=== PATIENT | male | born 1975 | race Caucasian/White ===

== ENCOUNTER 2016-03-24 15:45 | Emergency (ER) | payer BC ==
[2016-03-24 16:13] VITALS: BP 107/65
[2016-03-24] MEDS ORDERED: Sodium Chloride 0.9% 10 ML Syringe FLUSH PRN (16:16)
[2016-03-24] MEDS ORDERED: Ondansetron 4 MG/2 ML SDV IVPUSH ONE (16:17)
--- NOTE | 2016-03-24 16:25 | EDM.PDOC ---
ED HPI Trauma - General Chief Complaint: Upper Extremity Injury/Pain Stated Complaint: head injury and left elbow pain s/p fall Time Seen by Provider: 03/24/16 16:11 Source: Reports: Patient, Family, RN, RN notes reviewed History Limitations: Reports: No limitations - History of Present Illness INITIAL COMMENTS - FREE TEXT/NARRATIVE: Patient presents to the ED at [facility] after sustaining a fall on the ice. Patient states he was walking around his house, slipped and fell on some ice and landed on his left elbow and hit his head. Patient states he did start to drive himself to where his was. Half way there, he did "black out." He states he put the truck in Park and called his . The brought the patient directly here. No previous head injury or trauma. No previous LUE trauma. Symptom Onset Date: 03/24/16 Symptom Onset Time: 15:35 Occurred When: just prior to arrival Occurred Where: home Method of Injury: fall Severity: mild Pain/Injury Location: Reports: head, upper extremity, left Consciousness: Reports: brief (seconds), remembers incident Associated Symptoms: Reports: nausea/vomiting Allergies/ADRs: Allergies No Known Allergies Allergy (Verified 03/24/16 16:08) Home Medications: Ambulatory Orders Escitalopram [Lexapro] 10 mg PO DAILY 03/24/16 [Confirmed 03/24/16] Past Medical History - Past Health History Medical/Surgical History: Denies Medical/Surgical History Social & Family History - Family History Family Medical History: Noncontributory - Tobacco Use Smoking Status *Q: Former Smoker Tobacco Use Within Last Twelve Months: No - Tobacco Core Measures Tobacco Use/Smoking Within Last 30 Days: Refused Screening - Living Situation & Occupation Living situation: Reports: Occupation: employed Review of Systems - Review of Systems Review Of Systems: See Below Constitutional: Reports: no symptoms Eyes: Reports: no symptoms Ears: Reports: no symptoms Respiratory: Denies: shortness of breath, cough Cardiovascular: Denies: chest pain, palpitations GI/Abdominal: Reports: Nausea. Denies: Abdominal pain, Vomiting Musculoskeletal: Reports: joint pain (left elbow) Skin: Reports: no symptoms Neurological: Reports: dizziness. Denies: headache, numbness, paresthesia, tingling, weakness Trauma Exam - Physical Exam Exam: See Below Exam Limited By: No limitations General Appearance: Reports: alert, no apparent distress Head: Reports: atraumatic, normocephalic Eyes: bilateral eye: EOMI, normal inspection, PERRL Ears: Reports: normal external exam, normal canal, hearing grossly normal, normal TMs Nose: Reports: normal inspection, normal mucousa, no blood Throat/Mouth: Reports: Normal inspection, Normal oropharynx, No airway compromise Neck: Reports: non-tender, normal alignment, normal inspection Respiratory Exam: Reports: no respiratory distress, lungs clear, normal breath sounds Cardiovascular: Reports: normal peripheral pulses, regular rate, rhythm, no edema Extremities: Reports: tenderness (medial left elbow; no obvious bone deformity; no crepitusl limited ROM due to pain) Neurologic: Reports: no motor/sensory deficits, alert, oriented x 3 Skin: Reports: Normal color, Warm/dry - Carola Coma Score Best Eye Response ([place]): (4) open spontaneously Best Verbal Response ([place]): (5) oriented Best Motor Response ([place]): (6) obeys commands Carola Total: 15 ED PROCEDURES, ALL - Splinting Splint site: Left Elbow Pre-procedure NV status: normal Post-procedure NV status: normal Splint material: other Splint design: posterior, sling Applied & form fitted by: provider Provider post-splint application NV check: NV status normal, good position Complications: none Course - Vital Signs Last Recorded V/S: Last Vital Signs Temp 35 C L 03/24/16 16:09 Pulse 58 L 03/24/16 16:09 Resp 16 03/24/16 16:09 BP 107/65 03/24/16 16:09 Pulse Ox 95 03/24/16 16:09 - Orders/Labs/Meds Orders: Active Orders 24 hr Category Date Time Status Elbow Min 3V Lt [CR] Stat Exams 03/24/16 16:17 Taken Elbow wo Cont Lt [CT] Stat Exams 03/24/16 16:54 Ordered Head wo Cont [CT] Stat Exams 03/24/16 16:11 Taken Sodium Chloride 0.9% [Saline Flush] Med 03/24/16 16:16 Active 10 ml FLUSH ASDIRECTED PRN Peripheral IV Insertion Adult [OM.PC] Routine Oth 03/24/16 16:16 Ordered Medication Orders Sodium Chloride (Saline Flush) 10 ml FLUSH ASDIRECTED PRN PRN Reason: Keep Vein Open Meds: Medications Generic Name Dose Route Start Last Admin Trade Name [place] PRN Reason Stop Dose Admin Sodium Chloride 10 ml 03/24/16 16:16 Saline Flush FLUSH ASDIRECTED PRN Keep Vein Open Discontinued Medications Generic Name Dose Route Start Last Admin Trade Name Freq PRN Reason Stop Dose Admin Acetaminophen/Hydrocodone Bitart 1 packet 03/24/16 16:40 03/24/16 16:48 Take Home: Acetam/Hydrocodon 325-5 Mg, 5 Pack PO 03/24/16 16:41 1 packet ONETIME ONE Administration Ketorolac Tromethamine 30 mg 03/24/16 16:40 03/24/16 16:47 Toradol IVPUSH 03/24/16 16:41 30 mg ONETIME ONE Administration Ondansetron HCl 4 mg 03/24/16 16:17 03/24/16 16:41 Zofran IVPUSH 03/24/16 16:18 4 mg ONETIME ONE Administration Departure - Departure Time of Disposition: 16:59 Disposition: Home, Self-Care 01 Condition: good Clinical Impression: Closed head injury with brief loss of consciousness Fracture of radial head, left, closed Qualifiers: Encounter type: initial encounter Fracture alignment: nondisplaced Qualified Code(s): S52.125A - Nondisplaced fracture of head of left radius, initial encounter for closed fracture Fall from slipping on ice Qualifiers: Encounter type: initial encounter Qualified Code(s): W00.9XXA - Unspecified fall due to ice and snow, initial encounter Instructions: Radial Head Fracture, [id number], Cast or Splint Care, Easy-to- Read Referrals: Preet Gutierrez MD [Primary Care Provider] - Forms: ED Department Discharge Additional Instructions: 1. Stay well hydrated and rest 2. Wear splint at all times 3. May shower/bath as usual; do not get splint wet 4. Take Vicodin pain medication as prescribed 5. [facility] will call you on Friday to set up the Ortho appointment 6. See your Primary as symptoms warrant ED Communication - ED Communication Date/Time Date: 03/24/16 Time Called: 16:55 - Discussed Case With (1) Discussed Case With (1): Other Person/s Notified (1): Patricio Domínguez (Ortho) - Conversation Summary Outpatient Provider Agreed to Follow-up on this Patient: Yes Radiology Reading Discussed with Radiologist: Yes Summary Comment: Patient has a radial head fracture; recommend splint and CT of elbow; f/u with Ortho this week in clinic - Problem List Review Problem List Initiated/Reviewed/Updated: Yes - My Orders Last 24 Hours: My Active Orders 03/24/16 16:11 Head wo Cont [CT] Stat 03/24/16 16:16 Sodium Chloride 0.9% [Saline Flush] 10 ml FLUSH ASDIRECTED PRN Peripheral IV Insertion Adult [OM.PC] Routine 03/24/16 16:17 Elbow Min 3V Lt [CR] Stat 03/24/16 16:54 Elbow wo Cont Lt [CT] Stat - Assessment/Plan Last 24 Hours: My Active Orders 03/24/16 16:11 Head wo Cont [CT] Stat 03/24/16 16:16 Sodium Chloride 0.9% [Saline Flush] 10 ml FLUSH ASDIRECTED PRN Peripheral IV Insertion Adult [OM.PC] Routine 03/24/16 16:17 Elbow Min 3V Lt [CR] Stat 03/24/16 16:54 Elbow wo Cont Lt [CT] Stat
[2016-03-24] MEDS ORDERED: Take Home: Acetaminophen/HYDROcodone 325-5 MG, 5 Tab Pack PO ONE (16:40)
[2016-03-24] MEDS ORDERED: Ketorolac 30 MG/ML SDV IVPUSH ONE (16:40)
== END 2016-03-24 17:40 | disposition home or self-care (01) ==
LOC: VM.ED 15:45
DX: S52.125A Nondisplaced fracture of head of left radius, initial encounter for closed fracture (principal); S06.9X9A Unspecified intracranial injury with loss of consciousness of unspecified duration, initial encounter; W00.9XXA Unspecified fall due to ice and snow, initial encounter; Z87.891 Personal history of nicotine dependence
CPT/HCPCS: 29105; 70450; 73080; 73200; 96374; 96375; 99284; A9270; J1885; J2405

== ENCOUNTER 2018-10-31 17:58 | Observation (INO) | payer BC ==
[2018-10-31] MEDS ORDERED: Sodium Chloride 0.9% 1,000 ML IV ONE (18:17)
[2018-10-31] MEDS ORDERED: Ondansetron 8 MG in Sodium Chloride 0.9% 100 ML IV ONE (18:18)
--- NOTE | 2018-10-31 18:28 | EDM.PDOC ---
ED HPI GENERAL MEDICAL PROBLEM - General Chief Complaint: Gastrointestinal Problem Stated Complaint: Patient states he was at home after working in the yard today he went upstairs to shower felt very nauseated and sat down/laid down on the floor vomited called EMS with questionable heatstroke Time Seen by Provider: 10/31/18 18:15 Source of Information: Reports: Patient, EMS, Family History Limitations: Reports: No Limitations - History of Present Illness INITIAL COMMENTS - FREE TEXT/NARRATIVE: Patient states he was out mowing the yard today and spraying 24D for the last couple of hours. He denies any skin contact with the chemical and says he been feeling fine all day and says he has not had anything to eat but has been drinking plenty of water. He states he has been trying to diet lately over the last couple of days he denies taking any diet medications or changes in medications. Said he felt fine earlier today until the nausea and dizziness started approximately hour or so ago. Patient at time arrival EMS denied any pain shortness of breath EKG was run showed normal sinus rhythm nothing acute vital signs normal except for patient was hypothermic Onset: Today, Sudden Duration: Hour(s): Improves with: Reports: None Worsens with: Reports: None Associated Symptoms: Reports: Diaphoresis, Nausea/Vomiting. Denies: Confusion, Chest Pain, Fever/Chills, Headaches, Rash, Seizure, Shortness of Breath, Syncope , Weakness - Related Data Allergies Allergy/AdvReac Type Severity Reaction Status Date / Time No Known Allergies Allergy Verified 10/31/18 18:34 Home Meds: Home Meds Escitalopram [Lexapro] 30 mg PO DAILY 03/24/16 [History] buPROPion HCl [Wellbutrin Xl] 150 mg PO DAILY 10/31/18 [History] Past Medical History - Past Health History Medical/Surgical History: Denies Medical/Surgical History Social & Family History - Family History Family Medical History: Noncontributory - Living Situation & Occupation Living situation: Reports: Occupation: Employed ED ROS GENERAL - Review of Systems Review Of Systems: See Below Constitutional: Reports: Diaphoresis. Denies: No Symptoms, Fever, Chills, Malaise, Weakness, Fatigue, Night Sweats, Decreased Appetite HEENT: Denies: No Symptoms, Ear Discharge, Eye Pain, Nosebleed, Rhinitis, Sinus Problem, Vertigo, Vision Change Respiratory: Reports: No Symptoms Cardiovascular: Denies: Chest Pain, Blood Pressure Problem, Claudication, Dyspnea on Exertion, Palpitations, PND, Syncope Endocrine: Reports: No Symptoms GI/Abdominal: Reports: Nausea, Vomiting. Denies: Abdominal Pain : Reports: No Symptoms Musculoskeletal: Reports: No Symptoms Skin: Reports: No Symptoms Neurological: Reports: Dizziness. Denies: Confusion, Headache, Numbness, Paresthesia, Syncope, Tingling, Weakness Psychiatric: Reports: No Symptoms Hematologic/Lymphatic: Reports: No Symptoms Immunologic: Reports: No Symptoms ED EXAM, GENERAL - Physical Exam Exam: See Below Exam Limited By: No Limitations (Patient is diaphoretic and hypothermic. He was checked orally and temporal for temperature) General Appearance: Alert, WD/WN, No Apparent Distress Eye Exam: Bilateral Eye: EOMI, Nystagmus (Patient has bilateral horizontal nystagmus noted) Ears: Normal External Exam, Normal Canal, Hearing Grossly Normal, Normal TMs Ear Exam: Bilateral Ear: Auricle Normal, Canal Normal, TM normal Nose: Normal Inspection, Normal Mucosa, No Blood Throat/Mouth: Normal Inspection, Normal Lips, Normal Teeth, Normal Gums, Normal Oropharynx, Normal Voice, No Airway Compromise Head: Atraumatic, Normocephalic Neck: Normal Inspection, Supple, Non-Tender, Full Range of Motion Respiratory/Chest: No Respiratory Distress, Lungs Clear, Normal Breath Sounds, No Accessory Muscle Use, Chest Non-Tender Cardiovascular: Normal Peripheral Pulses, Regular Rate, Rhythm, No Edema, No Gallop, No JVD, No Murmur, No Rub GI/Abdominal: Normal Bowel Sounds, Soft, Non-Tender, No Organomegaly, No Distention. No: Guarding, Rigid, Rebound, Tender Back Exam: Full Range of Motion Extremities: Normal Inspection, Normal Range of Motion, Non-Tender, No Pedal Edema, Normal Capillary Refill Neurological: Alert, Oriented, CN II-XII Intact, Normal Cognition. 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 bilateral equal facial sensation deep tendon reflexes lower extremity 2+ patella and Achilles with testing the Babinski patient has no plantar flexion bilateral is equal sensation to soft touch) Psychiatric: Normal Affect, Normal Mood Skin Exam: Intact, No Rash, Diaphoretic Lymphatic: No Adenopathy EKG INTERPRETATION EKG Interpretation Comments: EKG from EMS was reviewed normal sinus rhythm no acute findings were noted patient vital signs are all within normal limits except for being hypothermic and O2 sats of 91- 92% Course - Vital Signs Text/Narrative:: Patient was rechecked multiple times neurologically intact normal conversation normal gait to the restroom Secondary to patient's condition hypothermia low O2 sat 91% I called [facility] spoke with Dr. Murdock in the ER she agrees that all labs that were checked were appropriate and she cannot think of any other labs that would need be checked she does recommend a CTA of the head and a consult with poison control. She recommends that this patient probably could be followed up outpatient for episode if cta was normal I ask if neurology at [place] would consult she said probably not unless there was a abnormality with a CTA 9:30 PM Spoke with poison control they could find no interactions with the medications that he is currently on are the chemicals that he was using today they have no reason for the hypothermia CT of the head no acute findings CTA of the head no acute findings Patient was rechecked has normal gait conversation normal thought process and logical conversation cranial nerves II through XII are intact temperature was 96.8 heart rate 72 O2 sat 94% on room air patient states he feels fine and wishes to go home and does not want transfer After explaining risks versus benefit to the patient and patient agrees to be put in for observation overnight during this timeframe we will draw a repeat labs checked an EKG in the morning and vital signs through the night patient will be monitored on telemetry Last Recorded V/S: Last Vital Signs Temp 36.0 C 10/31/18 23:04 Pulse 71 10/31/18 21:35 Resp 16 10/31/18 21:35 BP 118/61 10/31/18 21:35 Pulse Ox 96 10/31/18 21:35 - Orders/Labs/Meds Orders: Active Orders 24 hr Category Date Time Status CTA Head W & W/O Contrast [Ang Head] [CT] Stat Exams 10/31/18 21:27 Taken Chest 1V Frontal [CR] Stat Exams 10/31/18 18:49 Taken UA W/MICROSCOPIC [URIN] Stat Lab 10/31/18 18:15 Received URINE DRUG SCREEN,POC [POC] Stat Lab 10/31/18 18:16 Results Labs: Laboratory Tests 10/31/18 10/31/18 10/31/18 Range/Units 18:16 18:50 18:50 WBC 13.6 H (4.0-10.0) x10^3/uL RBC 4.92 (4.5-6.0) x10^6/uL Hgb 15.5 (14.0-18.0) g/dL Hct 45.8 (40.0-52.0) % MCV 93.1 H (78.0-93.0) fL MCH 31.5 (26.0-32.0) pg MCHC 33.8 (32.0-36.0) g/dL RDW Coeff of Heavenly 12.3 (10.0-15.0) % Plt Count 232 (130-400) x10^3/uL Neut % (Auto) 73.3 (50.0-80.0) % Lymph % (Auto) 20.4 L (25.0-50.0) % Bowie % (Auto) 5.3 (2.0-11.0) % Eos % (Auto) 0.7 (0.0-4.0) % Baso % (Auto) 0.3 (0.2-1.2) % Sodium 151 H (136-145) mmol/L Potassium 3.6 (3.5-5.1) mmol/L Chloride 110 H (98-107) mmol/L Carbon Dioxide 28 (21-32) mmol/L Anion Gap 16.6 (10-20) mmol/L BUN 20 H (7-18) mg/dL Creatinine 1.4 H (0.70-1.30) mg/dL Est Cr Clr Drug Dosing TNP Estimated GFR (MDRD) 55 Glucose 106 (74-106) mg/dL Lactic Acid (0.4-2.0) mmol/L Calcium 9.0 (8.5-10.1) mg/dL Creatine Kinase (39-308) U/L Troponin I < 0.017 (<=0.056) ng/mL TSH, Ultra Sensitive 1.436 (0.358-3.74) uIU/mL Urine Color (YELLOW) POC Urine Appearance (CLEAR) POC Urine pH (5.0-8.0) Ur Specific [place] (1.005-1.030) POC Urine Protein (NEGATIVE) POC Ur Glucose (UA) (NEGATIVE) POC Urine Ketones (NEGATIVE) POC Ur Occult Blood (NEGATIVE) POC Urine Nitrite (NEGATIVE) POC Urine Bilirubin (NEGATIVE) POC Urine Urobilinogen (0.2) POC U Leukocyte Esteras (NEGATIVE) Urine Opiates Screen Negative (NEGATIVE) Ur Buprenorphine Scrn Negative (NEGATIVE) Ur Oxycodone Screen Negative (NEGATIVE) Ur EDDP (Meth Metab) Negative (NEGATIVE) Urine Methadone Screen Negative (NEGATIVE) Ur Barbituates Screen Negative (NEGATIVE) Ur Tricyclics Screen Negative (NEGATIVE) Ur Phencyclidine Scrn Negative (NEGATIVE) Ur Amphetamines Screen Negative (NEGATIVE) U Methamphetamines Scrn Negative (NEGATIVE) Urine MDMA Screen Negative (NEGATIVE) U Benzodiazepines Scrn Negative (NEGATIVE) Urine Cocaine Screen Negative (NEGATIVE) U Marijuana (THC) Screen Negative (NEGATIVE) 10/31/18 10/31/18 10/31/18 Range/Units 18:50 18:50 21:04 WBC (4.0-10.0) x10^3/uL RBC (4.5-6.0) x10^6/uL Hgb (14.0-18.0) g/dL Hct (40.0-52.0) % MCV (78.0-93.0) fL MCH (26.0-32.0) pg MCHC (32.0-36.0) g/dL RDW Coeff of Heavenly (10.0-15.0) % Plt Count (130-400) x10^3/uL Neut % (Auto) (50.0-80.0) % Lymph % (Auto) (25.0-50.0) % [place] % (Auto) (2.0-11.0) % Eos % (Auto) (0.0-4.0) % Baso % (Auto) (0.2-1.2) % Sodium (136-145) mmol/L Potassium (3.5-5.1) mmol/L Chloride (98-107) mmol/L Carbon Dioxide (21-32) mmol/L Anion Gap (10-20) mmol/L BUN (7-18) mg/dL Creatinine (0.70-1.30) mg/dL Est Cr Clr Drug Dosing Estimated GFR (MDRD) Glucose (74-106) mg/dL Lactic Acid 3.0 H* (0.4-2.0) mmol/L Calcium (8.5-10.1) mg/dL Creatine Kinase 153 (39-308) U/L Troponin I (<=0.056) ng/mL TSH, Ultra Sensitive (0.358-3.74) uIU/mL Urine Color Dark yellow (YELLOW) POC Urine Appearance Clear (CLEAR) POC Urine pH 5.5 (5.0-8.0) Ur Specific [place] 1.030 (1.005-1.030) POC Urine Protein Trace H (NEGATIVE) POC Ur Glucose (UA) Negative (NEGATIVE) POC Urine Ketones Negative (NEGATIVE) POC Ur Occult Blood Negative (NEGATIVE) POC Urine Nitrite Negative (NEGATIVE) POC Urine Bilirubin Negative (NEGATIVE) POC Urine Urobilinogen 0.2 (0.2) POC U Leukocyte Esteras Negative (NEGATIVE) Urine Opiates Screen (NEGATIVE) Ur Buprenorphine Scrn (NEGATIVE) Ur Oxycodone Screen (NEGATIVE) Ur EDDP (Meth Metab) (NEGATIVE) Urine Methadone Screen (NEGATIVE) Ur Barbituates Screen (NEGATIVE) Ur Tricyclics Screen (NEGATIVE) Ur Phencyclidine Scrn (NEGATIVE) Ur Amphetamines Screen (NEGATIVE) U Methamphetamines Scrn (NEGATIVE) Urine MDMA Screen (NEGATIVE) U Benzodiazepines Scrn (NEGATIVE) Urine Cocaine Screen (NEGATIVE) U Marijuana (THC) Screen (NEGATIVE) Meds: Medications Discontinued Medications Generic Name Dose Route Start Last Admin Trade Name Freq PRN Reason Stop Dose Admin Sodium Chloride 1,000 mls @ 999 mls/hr 10/31/18 18:17 10/31/18 18:05 Normal Saline IV 10/31/18 19:17 999 mls/hr ONETIME ONE Administration Ondansetron HCl 8 mg/ Sodium 104 mls @ 400 mls/hr 10/31/18 18:18 10/31/18 18: 20 Chloride IV 10/31/18 18:33 400 mls/hr ONETIME ONE Administration Iopamidol 100 ml 10/31/18 21:52 10/31/18 22:12 Isovue-300 (61%) IVPUSH 10/31/18 21:53 100 ml ONETIME ONE Administration Departure - Departure Time of Disposition: 23:20 Disposition: Refer to Observation Condition: Good Clinical Impression: Hypothermia, Hypernatremia, Diaphoresis - Discharge Information *PRESCRIPTION DRUG MONITORING PROGRAM REVIEWED*: No *COPY OF PRESCRIPTION DRUG MONITORING REPORT IN PATIENT ARAVIND: No Referrals: Brigida Zepeda [employer] [Primary Care Provider] - Forms: ED Department Discharge - Problem List & Annotations (1) Diaphoresis SNOMED Code(s): 63758844 Code(s): R61 - GENERALIZED HYPERHIDROSIS Status: Acute Current Visit: Yes (2) Hypernatremia SNOMED Code(s): 112501999 Code(s): E87.0 - HYPEROSMOLALITY AND HYPERNATREMIA Status: Acute Current Visit: Yes (3) Hypothermia SNOMED Code(s): 714885981 Code(s): T68.XXXA - HYPOTHERMIA, INITIAL ENCOUNTER Status: Acute Current Visit: Yes - My Orders Last 24 Hours: My Active Orders 10/31/18 18:15 UA W/MICROSCOPIC [URIN] Stat 10/31/18 18:16 URINE DRUG SCREEN,POC [POC] Stat 10/31/18 18:49 Chest 1V Frontal [CR] Stat 10/31/18 21:27 CTA Head W & W/O Contrast [Ang Head] [CT] Stat - Assessment/Plan Last 24 Hours: My Active Orders 10/31/18 18:15 UA W/MICROSCOPIC [URIN] Stat 10/31/18 18:16 URINE DRUG SCREEN,POC [POC] Stat 10/31/18 18:49 Chest 1V Frontal [CR] Stat 10/31/18 21:27 CTA Head W & W/O Contrast [Ang Head] [CT] Stat
[2018-10-31 19:29] LABS: ANION GAP 16.6 mmol/L (10-20); CHLORIDE,CL 110 mmol/L (98-107); SODIUM,NA 151 mmol/L (136-145)
[2018-10-31 21:01] LABS: BUPRENORPHINE,URINE NEGATIVE (NEGATIVE)
[2018-10-31 21:02] LABS: MARIJUANA,URINE NEGATIVE (NEGATIVE); METHYLENEDIOXYMETHAMP,UR NEGATIVE (NEGATIVE); PHENCYCLIDINE,URINE NEGATIVE (NEGATIVE)
[2018-10-31] MEDS ORDERED: Iopamidol 612 MG/ML 100 ML Bottle IVPUSH ONE (21:52)
[2018-11-01] MEDS ORDERED: Sodium Chloride 0.9% 1,000 ML IV SCH ×3 (01:00→12:45)
[2018-11-01] MEDS ORDERED: Ondansetron 4 MG/2 ML SDV IVPUSH PRN ×2 (01:00→01:43)
[2018-11-01 06:22] VITALS: BP 107/56; PULSE 62
[2018-11-01 08:05] LABS: CHLORIDE,CL 108 mmol/L (98-107); SODIUM,NA 146 mmol/L (136-145)
[2018-11-01 08:20] LABS: ANION GAP 14.8 mmol/L (10-20)
--- NOTE | 2018-11-01 10:32 | PCM.DCSUM1 ---
Discharge Summary - Hospital Course Free Text/Narrative:: Patient had uneventful night states he rested quite well and had a normal breakfast this morning. States he feels much better and wants to go home this morning states he'll follow with his primary care provider in the next 24 hours.. Serial troponins all are negative through the night. EKG this morning normal sinus rhythm with vital SIGNS ARE STABLE THROUGH THE NIGHT TEMPERATURE THIS A.M. WAS NORMAL Patient has no complaints Exam HEENT within normal limits lungs clear to auscultation all kerr heart regular rate and rhythm normal S1-S2 no murmurs or gallops are appreciated abdomen was soft and nontender neck full range of motion extremities full range of motion and no pedal edema noted cranial nerves II through XII are intact with a normal gait Patient was resume all daily medications as directed Patient was given instructions on signs and symptoms need to return to the emergency room patient gives verbal understanding Diagnosis: Stroke: No Modified Trinity Scale: No Symptoms at All Modified Trinity Scale Score: 0 - Discharge Data Discharge Date: 11/01/18 Discharge Disposition: Home, Self-Care 01 Condition: Good - Discharge Diagnosis/Problem(s) (1) Diaphoresis SNOMED Code(s): 75063902 ICD Code: R61 - GENERALIZED HYPERHIDROSIS Status: Acute Current Visit: Yes (2) Hypernatremia SNOMED Code(s): 510886261 ICD Code: E87.0 - HYPEROSMOLALITY AND HYPERNATREMIA Status: Acute Current Visit: Yes (3) Hypothermia SNOMED Code(s): 781085470 ICD Code: T68.XXXA - HYPOTHERMIA, INITIAL ENCOUNTER Status: Acute Current Visit: Yes - Patient Instructions Diet: Usual Diet as Tolerated, Drink 8-10+ Glasses/Day - Discharge Plan *PRESCRIPTION DRUG MONITORING PROGRAM REVIEWED*: No *COPY OF PRESCRIPTION DRUG MONITORING REPORT IN PATIENT ARAVIND: No Home Medications: Home Meds Escitalopram [Lexapro] 30 mg PO DAILY 03/24/16 [History] buPROPion HCl [Wellbutrin Xl] 150 mg PO DAILY 10/31/18 [History] Multivitamin [Multi-Vitamin Daily] 1 tab PO DAILY 11/01/18 [History] Forms: ED Department Discharge Referrals: Brigida Zepeda [employer] IN[employer]IGATOR [Primary Care Provider] - - Discharge Summary/Plan Comment DC Time >30 min.: No Discharge Summary/Plan Comment: Still unsure of patient's true diagnosis with hypothermia and reason for diaphoretic patient is to be followed by primary care provider - Patient Data Vitals - Most Recent: Last Vital Signs Temp 36.6 C 11/01/18 06:00 Pulse 62 11/01/18 06:00 Resp 18 11/01/18 06:00 BP 107/56 L 11/01/18 06:00 Pulse Ox 95 11/01/18 09:50 Weight - Most Recent: 104.326 kg I&O - Last 24 hours: Intake & Output 10/31/18 11/01/18 11/01/18 22:59 06:59 14:59 Intake Total 467 Output Total 300 Balance 167 Lab Results - Last 24 hrs: Laboratory Results - last 24 hr 10/31/18 10/31/18 10/31/18 Range/Units 18:16 18:50 18:50 WBC 13.6 H (4.0-10.0) x10^3/uL RBC 4.92 (4.5-6.0) x10^6/uL Hgb 15.5 (14.0-18.0) g/dL Hct 45.8 (40.0-52.0) % MCV 93.1 H (78.0-93.0) fL MCH 31.5 (26.0-32.0) pg MCHC 33.8 (32.0-36.0) g/dL RDW Coeff of Heavenly 12.3 (10.0-15.0) % Plt Count 232 (130-400) x10^3/uL Neut % (Auto) 73.3 (50.0-80.0) % Lymph % (Auto) 20.4 L (25.0-50.0) % [place] % (Auto) 5.3 (2.0-11.0) % Eos % (Auto) 0.7 (0.0-4.0) % Baso % (Auto) 0.3 (0.2-1.2) % Sodium 151 H (136-145) mmol/L Potassium 3.6 (3.5-5.1) mmol/L Chloride 110 H (98-107) mmol/L Carbon Dioxide 28 (21-32) mmol/L Anion Gap 16.6 (10-20) mmol/L BUN 20 H (7-18) mg/dL Creatinine 1.4 H (0.70-1.30) mg/dL Est Cr Clr Drug Dosing TNP Estimated GFR (MDRD) 55 Glucose 106 (74-106) mg/dL Lactic Acid (0.4-2.0) mmol/L Calcium 9.0 (8.5-10.1) mg/dL Creatine Kinase (39-308) U/L Troponin I < 0.017 (<=0.056) ng/mL TSH, Ultra Sensitive 1.436 (0.358-3.74) uIU/mL Urine Color (YELLOW) POC Urine Appearance (CLEAR) POC Urine pH (5.0-8.0) Ur Specific [place] (1.005-1.030) POC Urine Protein (NEGATIVE) POC Ur Glucose (UA) (NEGATIVE) POC Urine Ketones (NEGATIVE) POC Ur Occult Blood (NEGATIVE) POC Urine Nitrite (NEGATIVE) POC Urine Bilirubin (NEGATIVE) POC Urine Urobilinogen (0.2) POC U Leukocyte Esteras (NEGATIVE) Urine Opiates Screen Negative (NEGATIVE) Ur Buprenorphine Scrn Negative (NEGATIVE) Ur Oxycodone Screen Negative (NEGATIVE) Ur EDDP (Meth Metab) Negative (NEGATIVE) Urine Methadone Screen Negative (NEGATIVE) Ur Barbituates Screen Negative (NEGATIVE) Ur Tricyclics Screen Negative (NEGATIVE) Ur Phencyclidine Scrn Negative (NEGATIVE) Ur Amphetamines Screen Negative (NEGATIVE) U Methamphetamines Scrn Negative (NEGATIVE) Urine MDMA Screen Negative (NEGATIVE) U Benzodiazepines Scrn Negative (NEGATIVE) Urine Cocaine Screen Negative (NEGATIVE) U Marijuana (THC) Screen Negative (NEGATIVE) 10/31/18 10/31/18 10/31/18 Range/Units 18:50 18:50 21:04 WBC (4.0-10.0) x10^3/uL RBC (4.5-6.0) x10^6/uL Hgb (14.0-18.0) g/dL Hct (40.0-52.0) % MCV (78.0-93.0) fL MCH (26.0-32.0) pg MCHC (32.0-36.0) g/dL RDW Coeff of Heavenly (10.0-15.0) % Plt Count (130-400) x10^3/uL Neut % (Auto) (50.0-80.0) % Lymph % (Auto) (25.0-50.0) % [place] % (Auto) (2.0-11.0) % Eos % (Auto) (0.0-4.0) % Baso % (Auto) (0.2-1.2) % Sodium (136-145) mmol/L Potassium (3.5-5.1) mmol/L Chloride (98-107) mmol/L Carbon Dioxide (21-32) mmol/L Anion Gap (10-20) mmol/L BUN (7-18) mg/dL Creatinine (0.70-1.30) mg/dL Est Cr Clr Drug Dosing Estimated GFR (MDRD) Glucose (74-106) mg/dL Lactic Acid 3.0 H* (0.4-2.0) mmol/L Calcium (8.5-10.1) mg/dL Creatine Kinase 153 (39-308) U/L Troponin I (<=0.056) ng/mL TSH, Ultra Sensitive (0.358-3.74) uIU/mL Urine Color Dark yellow (YELLOW) POC Urine Appearance Clear (CLEAR) POC Urine pH 5.5 (5.0-8.0) Ur Specific [place] 1.030 (1.005-1.030) POC Urine Protein Trace H (NEGATIVE) POC Ur Glucose (UA) Negative (NEGATIVE) POC Urine Ketones Negative (NEGATIVE) POC Ur Occult Blood Negative (NEGATIVE) POC Urine Nitrite Negative (NEGATIVE) POC Urine Bilirubin Negative (NEGATIVE) POC Urine Urobilinogen 0.2 (0.2) POC U Leukocyte Esteras Negative (NEGATIVE) Urine Opiates Screen (NEGATIVE) Ur Buprenorphine Scrn (NEGATIVE) Ur Oxycodone Screen (NEGATIVE) Ur EDDP (Meth Metab) (NEGATIVE) Urine Methadone Screen (NEGATIVE) Ur Barbituates Screen (NEGATIVE) Ur Tricyclics Screen (NEGATIVE) Ur Phencyclidine Scrn (NEGATIVE) Ur Amphetamines Screen (NEGATIVE) U Methamphetamines Scrn (NEGATIVE) Urine MDMA Screen (NEGATIVE) U Benzodiazepines Scrn (NEGATIVE) Urine Cocaine Screen (NEGATIVE) U Marijuana (THC) Screen (NEGATIVE) 10/31/18 11/01/18 11/01/18 Range/Units 23:46 03:15 07:38 WBC 12.8 H (4.0-10.0) x10^3/uL RBC 4.77 (4.5-6.0) x10^6/uL Hgb 14.7 (14.0-18.0) g/dL Hct 44.3 (40.0-52.0) % MCV 92.9 (78.0-93.0) fL MCH 30.8 (26.0-32.0) pg MCHC 33.2 (32.0-36.0) g/dL RDW Coeff of Heavenly 12.6 (10.0-15.0) % Plt Count 233 (130-400) x10^3/uL Neut % (Auto) 73.3 (50.0-80.0) % Lymph % (Auto) 17.2 L (25.0-50.0) % [place] % (Auto) 8.9 (2.0-11.0) % Eos % (Auto) 0.4 (0.0-4.0) % Baso % (Auto) 0.2 (0.2-1.2) % Sodium (136-145) mmol/L Potassium (3.5-5.1) mmol/L Chloride (98-107) mmol/L Carbon Dioxide (21-32) mmol/L Anion Gap (10-20) mmol/L BUN (7-18) mg/dL Creatinine (0.70-1.30) mg/dL Est Cr Clr Drug Dosing Estimated GFR (MDRD) Glucose (74-106) mg/dL Lactic Acid (0.4-2.0) mmol/L Calcium (8.5-10.1) mg/dL Creatine Kinase (39-308) U/L Troponin I < 0.017 < 0.017 (<=0.056) ng/mL TSH, Ultra Sensitive (0.358-3.74) uIU/mL Urine Color (YELLOW) POC Urine Appearance (CLEAR) POC Urine pH (5.0-8.0) Ur Specific [place] (1.005-1.030) POC Urine Protein (NEGATIVE) POC Ur Glucose (UA) (NEGATIVE) POC Urine Ketones (NEGATIVE) POC Ur Occult Blood (NEGATIVE) POC Urine Nitrite (NEGATIVE) POC Urine Bilirubin (NEGATIVE) POC Urine Urobilinogen (0.2) POC U Leukocyte Esteras (NEGATIVE) Urine Opiates Screen (NEGATIVE) Ur Buprenorphine Scrn (NEGATIVE) Ur Oxycodone Screen (NEGATIVE) Ur EDDP (Meth Metab) (NEGATIVE) Urine Methadone Screen (NEGATIVE) Ur Barbituates Screen (NEGATIVE) Ur Tricyclics Screen (NEGATIVE) Ur Phencyclidine Scrn (NEGATIVE) Ur Amphetamines Screen (NEGATIVE) U Methamphetamines Scrn (NEGATIVE) Urine MDMA Screen (NEGATIVE) U Benzodiazepines Scrn (NEGATIVE) Urine Cocaine Screen (NEGATIVE) U Marijuana (THC) Screen (NEGATIVE) 11/01/18 11/01/18 Range/Units 07:38 07:38 WBC (4.0-10.0) x10^3/uL RBC (4.5-6.0) x10^6/uL Hgb (14.0-18.0) g/dL Hct (40.0-52.0) % MCV (78.0-93.0) fL MCH (26.0-32.0) pg MCHC (32.0-36.0) g/dL RDW Coeff of Heavenly (10.0-15.0) % Plt Count (130-400) x10^3/uL Neut % (Auto) (50.0-80.0) % Lymph % (Auto) (25.0-50.0) % [place] % (Auto) (2.0-11.0) % Eos % (Auto) (0.0-4.0) % Baso % (Auto) (0.2-1.2) % Sodium 146 H (136-145) mmol/L Potassium 3.8 (3.5-5.1) mmol/L Chloride 108 H (98-107) mmol/L Carbon Dioxide 27 (21-32) mmol/L Anion Gap 14.8 (10-20) mmol/L BUN 19 H (7-18) mg/dL Creatinine 1.1 (0.70-1.30) mg/dL Est Cr Clr Drug Dosing 95.84 Estimated GFR (MDRD) > 60 Glucose 81 (74-106) mg/dL Lactic Acid 1.0 (0.4-2.0) mmol/L Calcium 8.7 (8.5-10.1) mg/dL Creatine Kinase (39-308) U/L Troponin I (<=0.056) ng/mL TSH, Ultra Sensitive (0.358-3.74) uIU/mL Urine Color (YELLOW) POC Urine Appearance (CLEAR) POC Urine pH (5.0-8.0) Ur Specific [place] (1.005-1.030) POC Urine Protein (NEGATIVE) POC Ur Glucose (UA) (NEGATIVE) POC Urine Ketones (NEGATIVE) POC Ur Occult Blood (NEGATIVE) POC Urine Nitrite (NEGATIVE) POC Urine Bilirubin (NEGATIVE) POC Urine Urobilinogen (0.2) POC U Leukocyte Esteras (NEGATIVE) Urine Opiates Screen (NEGATIVE) Ur Buprenorphine Scrn (NEGATIVE) Ur Oxycodone Screen (NEGATIVE) Ur EDDP (Meth Metab) (NEGATIVE) Urine Methadone Screen (NEGATIVE) Ur Barbituates Screen (NEGATIVE) Ur Tricyclics Screen (NEGATIVE) Ur Phencyclidine Scrn (NEGATIVE) Ur Amphetamines Screen (NEGATIVE) U Methamphetamines Scrn (NEGATIVE) Urine MDMA Screen (NEGATIVE) U Benzodiazepines Scrn (NEGATIVE) Urine Cocaine Screen (NEGATIVE) U Marijuana (THC) Screen (NEGATIVE) Med Orders - Current: Current Medications Sodium Chloride (Normal Saline) 1,000 mls @ 75 mls/hr IV ASDIRECTED CANDY Ondansetron HCl (Zofran) 4 mg IVPUSH Q3H PRN PRN Reason: Nausea Discontinued Medications Sodium Chloride (Normal Saline) 1,000 mls @ 999 mls/hr IV ONETIME ONE Stop: 10/31/18 19:17 Last Admin: 10/31/18 18:05 Dose: 999 mls/hr Ondansetron HCl 8 mg/ Sodium (Chloride) 104 mls @ 400 mls/hr IV ONETIME ONE Stop: 10/31/18 18:33 Last Admin: 10/31/18 18:20 Dose: 400 mls/hr Sodium Chloride (Normal Saline) 1,000 mls @ 75 mls/hr IV ASDIRECTED CANDY Sodium Chloride (Normal Saline) 1,000 mls @ 75 mls/hr IV ASDIRECTED CANDY Iopamidol (Isovue-300 (61%)) 100 ml IVPUSH ONETIME ONE Stop: 10/31/18 21:53 Last Admin: 10/31/18 22:12 Dose: 100 ml Ondansetron HCl (Zofran) 4 mg IVPUSH Q3H PRN PRN Reason: Nausea
--- NOTE | 2018-11-01 10:43 | CT ---
[id number] CT/CT Head W IV EXAM: CT Head W IV CLINICAL DATA: HYPOTHERMIA WITH NYSTAGMUS. COMPARISON STUDY: None FINDINGS: No intracranial hemorrhage, extra-axial fluid collection, mass, or acute ischemia. Soft tissues are unremarkable. Mild paranasal sinus disease. The mastoid air cells are well aerated and clear. The intracranial portion of the internal carotid arteries are widely patent. The skull [place] of [place] is intact. The anterior circulation is symmetric bilaterally without hemodynamically significant stenosis or occlusion. The posterior circulation is symmetric bilaterally without hematuria likely significant stenosis or occlusion. No aneurysm or dissection. IMPRESSION: No acute intracranial findings. Zia Bonner DO 11/01/18 1043 Thank you for allowing us to participate in the care of your patient.
--- NOTE | 2018-11-01 12:25 | CR ---
[id number] RAD/RAD Chest PA or AP 1V EXAM: RAD Chest PA or AP 1V INDICATION: HYPOTHERMIA WITH NYSTAGMUS. COMPARISON: None. DISCUSSION: Cardiomediastinal silhouette is normal in size and contour. No infiltrate, effusion, pneumothorax, or edema. IMPRESSION: No acute cardiopulmonary abnormality. Zia Bonner DO 11/01/18 [id number] Thank you for allowing us to participate in the care of your patient.
== END 2018-11-01 10:50 | disposition home or self-care (01) ==
LOC: VM.ED 17:58 → VM.MS 23:45
PROVIDERS: ADMIT Physician Assistant Medical; ATTEND Physician Assistant Medical
DX: R61 Generalized hyperhidrosis (principal); E87.0 Hyperosmolality and hypernatremia; T68.XXXA Hypothermia, initial encounter; R11.2 Nausea with vomiting, unspecified; Z79.899 Other long term (current) drug therapy; Z88.2 Allergy status to sulfonamides
CPT/HCPCS: 36415; 70496; 71045; 80048; 80305; 81002; 82550; 83605; 84443; 84484; 85025; 96361; 96374; 99285; J2405; J7030; J7050; Q9967; G0378

== ENCOUNTER 2023-10-27 10:35 | Day surgery (SDC) | payer BC ==
[~2023-10-27 10:35] MED LIST: Lactated Ringers 1,000 ML IV SCH
[2023-10-27] MEDS: Lactated Ringers 1,000 ML IV SCH (10:49)
[2023-10-27] MEDS ORDERED: fentaNYL 100 MCG/2 ML SDV ONE (11:53)
[2023-10-27] MEDS ORDERED: Midazolam 1 MG/ML 2 ML SDV ONE (11:54)
[2023-10-27] MEDS ORDERED: Propofol 200 MG/20 ML SDV ONE (11:54)
[2023-10-27 12:30] VITALS: BP 119/78; PULSE 69
== END 2023-10-27 12:57 | disposition home or self-care (01) ==
LOC: VM.SDS 10:35
PROVIDERS: ATTEND Surgery
DX: Z12.11 Encounter for screening for malignant neoplasm of colon (principal); F33.40 Major depressive disorder, recurrent, in remission, unspecified; F41.9 Anxiety disorder, unspecified; Z79.899 Other long term (current) drug therapy
CPT/HCPCS: 00812; 45378; J2250; J2704; J3010; J7120